=== PATIENT | male | born 1985 | race Caucasian/White ===

== ENCOUNTER 2017-06-16 01:36 | Emergency (ER) | payer SELFPAY ==
[~2017-06-16] VITALS: Ht 180.3 cm; Wt 163.6 kg
[2017-06-16 03:45] VITALS: BP 166/96
== END 2017-06-16 03:45 | disposition home or self-care (01) ==
LOC: ED 01:36
DX: R00.2 Palpitations (principal); I10 Essential (primary) hypertension; E66.9 Obesity, unspecified; Z68.43 Body mass index [BMI] 50.0-59.9, adult

== ENCOUNTER → 2021-08-03 | Outpatient (CLI) | payer SELFPAY ==
[2021-08-03 10:29] LABS: D-DIMER 0.3 mg/L FEU (0.15-0.50)
== END ==
LOC: RAD 07:59 → LAB 07:59
PROVIDERS: Nurse Practitioner Family
DX: U07.1 COVID-19 (principal); R91.1 Solitary pulmonary nodule
CPT/HCPCS: Q9967